=== PATIENT | male | born 1970 | race Caucasian/White ===

== ENCOUNTER 2016-09-17 12:56 | Emergency (ER) | payer OTHER ==
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
[2016-09-17 13:59] VITALS: BP 154/86; PULSE 71; RESP 16; TEMP 96.8; O2SAT 98
== END 2016-09-17 14:00 | disposition home or self-care (01) ==
DX: S71.131A Puncture wound without foreign body, right thigh, initial encounter (principal); V18.2XXA Unspecified pedal cyclist injured in noncollision transport accident in nontraffic accident, initial encounter